=== PATIENT | female | born 1990 | race Caucasian/White ===

== ENCOUNTER 2017-04-08 20:21 | Emergency (ER) | payer BC, OTHER ==
[2017-04-08] MEDS ORDERED: LIDOCAINE 1% INJ-PF (10 MG/ML) 30 ML SDV INJ ONE (22:00)
[2017-04-08] MEDS ORDERED: HYDROCODONE/ACETAMINOPHEN 5-325 MG TABLET PO ONE (23:18)
--- NOTE | 2017-04-08 23:20 | ER Document Report ---
ED General - General Chief Complaint: Laceration Stated Complaint: FINGER LACETATION Time Seen by Provider: 04/08/17 21:59 Mode of Arrival: Ambulatory Information source: Patient, Relative Notes: Patient is a 18-year-old female comes emergency room complaining of having a laceration to her the palm side of her left ring finger. Patient states that she was in the kitchen cutting away from her body and cut down into the finger right at the DIP on the palm side. So it has a flap type presentation. This happened approximately 2 hours prior to arrival and patient states cannot get the bleeding to stop. 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 TRAVEL OUTSIDE OF THE [place] IN LAST 30 DAYS: No - HPI Onset: Other - 2 hours Onset/Duration: Sudden Quality of pain: Throbbing. denies: No pain Severity: Mild Pain Level: 2 Associated symptoms: None Exacerbated by: Other - Movement Relieved by: Other - Pressure and elevation Similar symptoms previously: No Recently seen / treated by doctor: No - Related Data Allergies/Adverse Reactions: NSAIDS (Non-Steroidal Anti-Inflamma [Nsaids] Allergy (Verified 06/03/15 13:23) Penicillins Allergy (Verified 06/03/15 13:23) Past Medical History - Social History Smoking Status: Unknown if Ever Smoked Family History: Reviewed & Not Pertinent Patient has suicidal ideation: No Patient has homicidal ideation: No - Past Medical History Cardiac Medical History: Reports: Hx Hypertension - PIH Renal/ Medical History: Denies: Hx Peritoneal Dialysis - Immunizations Hx Diphtheria, Pertussis, Tetanus Vaccination: Yes Review of Systems - Review of Systems Constitutional: No symptoms reported EENT: No symptoms reported Cardiovascular: No symptoms reported Respiratory: No symptoms reported Gastrointestinal: No symptoms reported Genitourinary: No symptoms reported Female Genitourinary: No symptoms reported Musculoskeletal: Joint pain Skin: Other - Laceration Hematologic/Lymphatic: No symptoms reported Neurological/Psychological: No symptoms reported -: Yes All other systems reviewed and negative Physical Exam - Vital signs Vitals: Temp Pulse Resp BP Pulse Ox 98.7 F 50 L 20 132/77 H 98 04/08/17 20:48 04/08/17 20:48 04/08/17 20:48 04/08/17 20:48 04/08/17 20:48 - General General appearance: Alert - Respiratory Respiratory status: No respiratory distress Chest status: Nontender Breath sounds: Normal. No: Rales, Rhonchi, Stridor, Wheezing Chest palpation: Normal - Cardiovascular Rhythm: Regular Heart sounds: Normal auscultation Murmur: No - Extremities General upper extremity: Tender, Normal ROM, Normal strength, Normal temperature. No: Normal inspection Hand: Tender, Laceration, Swelling, Other - Examination patient's left ring finger at the DIP palm side shows that patient has a 1 cm flap type laceration that starts at proximal to the DIP joint and goes to and towards the pad of the ring finger. It is approximately half a centimeter into the pad. It also appears to be relatively deep at about 0.7 mm into the fat portion. Patient has full range of motion with the tip there is no sign of flexor tendon origin or extensor tendon damage. This wound was looked at under a bloodless field and again saw no tendon involvement. Patient maintains a good cap refill she also maintain strength against resistance with that distal tip of the ring finger.. No: Normal, Nontender, Ecchymosis - Skin Skin Temperature: Warm Skin Moisture: Dry Skin Color: Other - See description in finger above Course - Vital Signs Vital signs: Temp Pulse Resp BP Pulse Ox 98.7 F 50 L 20 132/77 H 98 04/08/17 20:48 04/08/17 20:48 04/08/17 20:48 04/08/17 20:48 04/08/17 20:48 Procedures - Immobilization Left Finger 4th digit Pre-Proc Neuro Vasc Exam: Normal Immobilizer type: Finger splint (Static) Performed by: RN Post-Proc Neuro Vasc Exam: Normal Alignment checked and good: Yes - Laceration/Wound Repair Left Volar Finger 4th digit Time completed: 23:25 Wound length (cm): 1.5 Wound's Depth, Shape: Irregular, Flap Laceration pre-procedure: Sterile drapes applied, Shur-Clens applied Anesthetic type: 1% Lidocaine Volume Anesthetic (mLs): 1 Wound explored: Clean Irrigated w/ Saline (mLs): 200 Wound Debrided: Minimal Wound Repaired With: Sutures Suture Size/Type: 4:0, Prolene Number of Sutures: 3 Post-procedure NV exam normal: Yes Complications: No Discharge - Discharge Condition: Stable Disposition: HOME, SELF-CARE Instructions: Antibiotic Ointment Protection ([facility]), Laceration Care ([facility]), Oral Narcotic Medication ([facility]) Additional Instructions: Laceration Care Your laceration has been sutured to keep the skin edges aligned during healing. The time of suture removal depends on the nature and location of your cut. Please follow the care instructions the doctor has outlined for you and return for further care, according to the schedule you've been given. Keep the wound and dressing clean. Unless you were told otherwise, you may shower daily, blotting the wound dry with a clean, unused towel. At other times, If the dressing gets wet or blood soaked, remove it and blot the wound dry, then reapply a new dressing. Unless you were instructed otherwise, dressings should be changed at least daily. If any signs of infection occur (swelling, redness, increasing tenderness, red streaks, tender lumps in the armpit or groin above the laceration, or fever) , see the doctor immediately. Home and keep the area clean and dry for 48 hours. Change dressing twice a day and when wet or dirty. Take all the antibiotics. Return to ER in 8-10 days for suture removal or sooner if he do not believe it is healing correctly. Prescriptions: Clindamycin HCl 150 mg PO QID 7 Days #28 capsule Forms: Elevated Blood Pressure Referrals: IVA FLANNERY PA [Primary Care Provider] - Follow up as needed
[2017-04-09 00:11] VITALS: BP 128/69
== END 2017-04-08 23:50 | disposition home or self-care (01) ==
LOC: ER 20:21
PROC: 0HQGXZZ Repair Left Hand Skin, External Approach (ICD-10-PCS; principal; 2017-04-08)
DX: S61.215A Laceration without foreign body of left ring finger without damage to nail, initial encounter (principal); W45.8XXA Other foreign body or object entering through skin, initial encounter; Z88.0 Allergy status to penicillin
CPT/HCPCS: 99282

== ENCOUNTER 2020-03-12 06:37 | Inpatient (IN) | payer BC, OTHER, MEDICAID ==
[2020-03-12] MEDS ORDERED: MISOPROSTOL 0.2 MG TABLET ONE (08:32)
[2020-03-12] MEDS ORDERED: OXYTOCIN 10 UNIT/ML VIAL ONE (08:32)
[2020-03-12] MEDS ORDERED: OXYTOCIN/0.9 % SODIUM CHLORIDE 30 UNIT/500 ML RTUINJ ONE (08:32)
[2020-03-12] MEDS ORDERED: LIDOCAINE 1% INJ-PF (10 MG/ML) 30 ML SDV ONE (08:32)
[2020-03-12] MEDS ORDERED: OXYTOCIN/0.9 % SODIUM CHLORIDE 30 UNIT/500 ML RTUINJ IV PRN ×2 (08:40→17:18)
[2020-03-12] MEDS ORDERED: RINGERS SOLUTION,LACTATED 1,000 ML IV PRN (08:40)
--- NOTE | 2020-03-12 08:59 | Admission Physical ---
Datetime Report Generated by CPN: 03/12/2020 08:59 CURRENT ADMISSION Hx Assessment: The History has been Reviewed and is Current Chief Complaint: Scheduled Induction of Labor Indication for Induction: Gestational HTN Admit Impression : Term, Intrauterine ; No Active Labor Admit Plan: Admit to Unit; Initiate Labor Induction Protocol Admit Plan- Other: GBS +, allergic to PCN and Cephalosporins ALLERGIES Medication Allergies: NSAIDS (Non-Steroidal Anti-Inflamma (03/12/2020); Penicillins (03/12/2020) PHYSICAL EXAM General: Normal HEENT: Deferred Neurologic: Normal Thyroid: Deferred Heart: Normal Lungs: Normal Breast: Deferred Back: Deferred Abdomen: Normal Genitourinary Exam: Normal Extremities: Normal DTRs: Deferred Pelvic Type: Adequate Physical Exam Comments: cervix per RN Vital Signs: Reviewed FETUS A Monitoring: External US Accelerations: 15X15 Decelerations: None FHR Category: Category I Presentation: Vertex Admit Comment: GHTN Hx Gastric sleeve GBS urine early Pre E workup negative INFORMED CONSENT Assignment: Lorie Zamudio, MD Signature: with User ID: [email or web address] : with User ID: Ezra
[2020-03-12 09:51] LABS: ABSOLUTE LYMPHOCYTES (AUTO) 1.9 10^3/uL (0.5-4.7); ABSOLUTE MONOCYTES (AUTO) 0.5 10^3/uL (0.1-1.4); ABSOLUTE NEUT (AUTO) 4.5 10^3/uL (1.7-8.2); BASOPHILS % (AUTO) 0.5 % (0-2); EOSINOPHILS % (AUTO) 0.7 % (0-6); HEMATOCRIT 37.8 % (36.0-47.0); HEMOGLOBIN 13.2 g/dL (12.0-15.5); LYMPHOCYTES % (AUTO) 26.9 % (13-45); MEAN CORPUSCULAR VOLUME 86 fl (80-97); MONOCYTES % (AUTO) 7.5 % (3-13); PLATELET COUNT 249 10^3/uL (150-450); RED CELL DISTRIBUTION WIDTH 13.4 % (11.5-14.0); SEGMENTED NEUTROPHILS % (AUTO) 64.4 % (42-78); TOTAL CELLS COUNTED % (AUTO) 100 %
[2020-03-12] MEDS ORDERED: VANCOMYCIN HCL 1,000 MG in DEXTROSE 5%-WATER 250 ML IV SCH ×4 (10:00)
--- NOTE | 2020-03-12 11:02 | L&D Progress Notes ---
PROGRESS NOTES Datetime Report Generated by CPN: 03/12/2020 11:01 PROGRESS NOTE Impression: Normal Progression of Labor Procedures: Sterile Vag Exam Plan: Continue Present Management; Induction; Cervical Ripening Informed Consent Obtained: Vaginal Delivery; Risks, Benefits and Alternatives Discussed Vital Signs : Reviewed Vital Signs Comments: mild range BPs Comment: cvx 1-2. cooks catheter placed. will re-eval in 2-3 hours. VAGINAL EXAM Dilatation: 2 Effacement: 50 Station: -3 Contractions: q 2-3 LAST VAGINAL EXAM-NURSING Nursing Exam Dilitation: 1.5 Nursing Exam Effacement: thick Nursing Exam Station: high FETUS A FHR - Baseline: 150 Monitoring: External US Decelerations: None FHR Category: Category I : 39.1 Presentation: Vertex SIGNATURE SIGNATURE: [id number];[id number] Signature: with User ID: Dillon
[2020-03-12 12:44] LABS: APPEARANCE,URINE SLIGHTLY-CLOUDY; BILIRUBIN,URINE NEGATIVE (NEGATIVE); COLOR,URINE AMBER; GLUCOSE, URINE NEGATIVE (NEGATIVE); KETONES,URINE 20 mg/dL (NEGATIVE); LEUKOCYTE ESTERASE,URINE NEGATIVE (NEGATIVE); NITRITE,URINE NEGATIVE (NEGATIVE); PROTEIN,URINE 30 mg/dL (NEGATIVE); URINE SPECIFIC GRAVITY 1.018
[2020-03-12 13:07] LABS: URINE AMPHETAMINES SCREEN NEGATIVE; URINE BARBITURATES SCREEN NEGATIVE; URINE BENZODIAZEPINES SCREEN NEGATIVE; URINE COCAINE SCREEN NEGATIVE; URINE MARIJUANA (THC) SCREEN NEGATIVE; URINE METHADONE SCREEN NEGATIVE; URINE PHENCYCLIDINE SCREEN NEGATIVE
[2020-03-12] MEDS ORDERED: DIPHENHYDRAMINE HCL 25 MG CAPSULE PO PRN (17:18)
[2020-03-12] MEDS ORDERED: GLYCERIN/WITCH HAZEL LEAF 1 EACH MED..WIPE TP PRN (17:18)
[2020-03-12] MEDS ORDERED: ACETAMINOPHEN WITH CODEINE #3 TABLET PO PRN (17:18)
[2020-03-12] MEDS ORDERED: PROMETHAZINE HCL 25 MG SUPP.RECT PR PRN (17:18)
[2020-03-12] MEDS ORDERED: PROMETHAZINE HCL INJ 25 MG/1 ML VIAL IV PRN (17:18)
[2020-03-12] MEDS ORDERED: BENZOCAINE/MENTHOL AEROSOL SPRAY 56 ML TOP PRN (17:18)
[2020-03-12] MEDS ORDERED: PROMETHAZINE HCL 25 MG TABLET PO PRN (17:18)
[2020-03-12] MEDS ORDERED: DIPH/PERTUSS(ACELL)/TETANUS VAC/PF 0.5 ML SYR (>=10YO) IM PRN (17:18)
[2020-03-12] MEDS ORDERED: NA PHOS,M-B/NA PHOS,DI-BA (ADULT) 133 ML ENEMA PR PRN (17:18)
[2020-03-12] MEDS ORDERED: MEASLES,MUMPS&RUBELLA VACC/PF 0.5 ML VIAL SUBCUT PRN (17:18)
[2020-03-12] MEDS ORDERED: MAGNESIUM HYDROXIDE SUSP 30 ML UDCUP PO PRN (17:18)
[2020-03-12] MEDS ORDERED: ZOLPIDEM TARTRATE 5 MG TABLET PO PRN (17:18)
[2020-03-12] MEDS ORDERED: PSEUDOEPHEDRINE HCL 30 MG TABLET PO PRN (17:18)
[2020-03-12] MEDS ORDERED: DIBUCAINE 1% OINTMENT 28 GM TP PRN (17:18)
[2020-03-12] MEDS ORDERED: ACETAMINOPHEN 325 MG TABLET ONE (19:17)
--- NOTE | 2020-03-12 19:19 | Birth Certificate Data ---
Cert Data Datetime Report Generated by CPJennifer: 03/12/2020 19:19 CERTIFICATE DATA 47a. Care: Yes (03/12/2020 09:19:Yesica Chapin RN) 47b. Date of First Visit: 08/15/2019 00:00 (03/12/2020 09:19:Yesica Chapin RN) 47c. Date of Last Visit: 03/09/2020 00:00 (03/12/2020 09:19:Yesica Chapin RN) 47d. Number of Visits: 15 (03/12/2020 09:19:Yesica Chapin RN) 48a. Number of Prev Live Births: 2 (03/12/2020 09:19:Nicolasa Matamoros RN) 48b. Now Livin (03/12/2020 09:19:Nicolasa Matamoros RN) 48c. Live Births Now : 0 (03/12/2020 09:19:QS system process) 48e. Losses: 0 (03/12/2020 09:19:Nicolasa Matamoros RN) RISK FACTORS IN THIS 49a. Diabetes: No (03/12/2020 09:19:Yesica Chapin RN) 49b. Hypertension: Yes (03/12/2020 09:19:Yesica Chapin RN) Type of Hypertension: Gestational (PIH, Pre-eclampsia) (03/12/2020 09:19:Yesica Chapin RN) 49c. Previous Births: 0 (03/12/2020 09:19:Nicolasa Matamoros RN) 49d. Stillborns: No (03/12/2020 09:19:Nicolasa Matamoros RN) 49d. IUGR: No (03/12/2020 09:19:Nicolasa Matamoros RN) 49e. Infertility Treatment: No (03/12/2020 09:19:Yesica Chapin RN) 49f. Previous Cesareans: 0 (03/12/2020 09:19:Nicolasa Matamoros RN) Mother's Height 50b. Height Inches: 63 (03/12/2020 18:18:QS system process) Mother's Weight 51a. Pre- Weight (lbs): 189 (03/12/2020 09:19:Yesica Chapin RN) 51b. Weight at Delivery (lbs): 194 (03/12/2020 18:18:QS system process) 52. Dt Last Normal Menses Began: 06/12/2019 00:00 (03/12/2020 09:19:Nicolasa Matamoros RN) Infections Present/Treated 53a. Gonorrhea: No (03/12/2020 09:19:Yesica Chapin RN) Results this Hospital Visit : Negative (03/12/2020 09:19:Nicolasa Matamoros RN) 53b. Syphilis: No (03/12/2020 09:19:Yesica Chapin RN) Results this Hospital Visit: NONREACTIVE (03/12/2020 09:01:QS system process) 53c. Chlamydia: No (03/12/2020 09:19:Yesica Chapin RN) Results this Hospital Visit: Negative (03/12/2020 09:19:Yesica Chapin RN) 53d. Hepatitis B: No (03/12/2020 09:19:Yesica Chapin RN) Results this Hospital Visit: Negative (03/12/2020 09:19:Nicolasa Matamoros RN) 53e. Hepatitis C: Negative (03/12/2020 09:19:Nicolasa Matamoros RN) 53h. Mother Tested for HBsAG: Yes (03/12/2020 09:19:Nicolasa Matamoros RN) 53i. Date Tested: 08/15/2019 00:00 (03/12/2020 09:19:Nicolasa Matamoros RN) 53j. Test Result: Negative (03/12/2020 09:19:Nicolasa Matamoros RN) Obstetric Procedures 54a, b, c. Obstetric Procedures: Ultrasound; NST (03/12/2020 09:19:Yesica Chapin RN) Cigarette Smoking 55a. 3 Months Before Preg - Ci (03/12/2020 09:19:Yesica Chapin RN) 55a. Packs: 0 (03/12/2020 09:19:Yesica Chapin RN) 55b. 1st Trimester of Preg- Ci (03/12/2020 09:19:Yesica Chapin RN) 55b. Packs: 0 (03/12/2020 09:19:Yesica Chapin RN) 55c. 2nd Trimester of Preg- Ci (03/12/2020 09:19:Yesica Chapin RN) 55c. Packs: 0 (03/12/2020 09:19:Yesica Chapin RN) 55d. 3rd Trimester of Preg- Ci (03/12/2020 09:19:Yesica Chapin RN) 55d. Packs: 0 (03/12/2020 09:19:Yesica Chapin RN) Onset of Labor 56a. PROM >12 Hrs: 1.18 (03/12/2020 09:19:QS system process) 56b. Precipitous Labor <3 Hrs: 4 (03/12/2020 09:19:QS system process) 56c. Prolonged Labor > 20 Hrs: 4 (03/12/2020 09:19:QS system process) 57a. Induction of Labor: N/A (03/12/2020 09:19:Lorie Zamudio MD ([facility])) 57c. Non-Vertex Presentation A: Vertex (03/12/2020 09:19:Yesica Chapin RN) 57d. Steroids - Lung Mat: None (03/12/2020 09:19:Lorie Zamudio MD ([facility])) 57d. Steroids - Lung Mat: Not Applicable (03/12/2020 09:19:Lorie Zamudio MD ([facility])) 57e. Antibiotics During Labor: 03/12/2020 10:30 (03/12/2020 09:19:Yesica Chapin RN) 57g. Moderate/Heavy Meconium: Clear (03/12/2020 16:00:Yesica Chapin RN) 57h. Intolerance of Labor: N/A (03/12/2020 09:19:Yesica Chapin RN) : N/A (03/12/2020 09:19:Yesica Chapin RN) 57i. Epidural/Spinal Anesthesia: None (03/12/2020 09:19:Yesica Chapin RN) Method of Delivery 58a. Forceps - Unsuccessful A: N/A (03/12/2020 09:19:Yesica Chapin RN) 58b. Vacuum - Unsuccessful A: N/A (03/12/2020 09:19:Yesica Chapin RN) 58c. Presentation at 58c. Presentation at - A : Vertex (03/12/2020 09:19:Yesica Chapin RN) 58c. Presentation at - A : N/A (03/12/2020 09:19:Yesica Chapin RN) 58c. Presentation at - A : Cephalic (03/12/2020 08:07:Yesica Chapin RN) Final Route and Method of Del 58d. Baby A Route/Delivery: Vaginal (03/12/2020 17:11:Yesica Chapin RN) 58e. Trial of Labor Attempted: No (03/12/2020 09:19:Yesica Chapin RN) 58e. Trial of Labor Attempted A: N/A (03/12/2020 09:19:Yesica Chapin RN) 58e. Trial of Labor Attempted B: N/A (03/12/2020 09:19:Yesica Chapin RN) Maternal Morbidity 59b. 3rd or 4th Degree Lacs: None (03/12/2020 09:19:Lorie Zamudio MD ([facility])) 59b. 3rd or 4th Degree Lacs: N/A (03/12/2020 09:19:Yesica Chapin RN) Birthweight Baby A: 3070 (03/12/2020 09:19:Sofi Van RN) 60a. Pounds : 6 (03/12/2020 09:19:QS system process) 60b. Ounces: 12 (03/12/2020 09:19:QS system process) 61. GA at Delivery Baby A: 39.1 (03/12/2020 09:19:Yesica Chapin RN) : Full Term- 39- 40.6 Weeks (03/12/2020 09:19:QS system process) 62a. 5 Minute Baby A: 9 (03/12/2020 09:19:QS system process)
--- NOTE | 2020-03-12 19:19 | Delivery Summary ---
Del Sum A-C Datetime Report Generated by CPN: 03/12/2020 19:19 DELIVERY PERSONNEL DELIVERY PERSONNEL: [id number] Delivery Doctor:: Lorie Zamudio MD Labor and Delivery Nurse:: Yesica Chapin RNterminal gauger supervisor Nurse:: GURU Holden Nursery Nurse:: Sofi Van RN Hepatologist/WAFER POLISHER: Bernadette Mercado, PHLEBOTOMIST MATERNAL INFORMATION Delivery Anesthesia: None Medications After Delivery: Pitocin 30 Units in 500ml NS/D5W Estimated Blood Loss (ml): 400 Delivery QBL: 400 Maternal Complications: None Provider Comments: VFI delivered in OSCAR presentation. No nuchal cord. Shoulders and body delivered without difficulty. Cord doubly clamped and cut and to maternal abdomen after cord stopped pulsating. Short cord noted. Placenta delivered intact spontaneously with trailing membranes and no e/o retained products on crudee. No perineal lacerations. Good hemostasis. Mother and baby stable upon provider leaving the room. LABOR SUMMARY EDC: 03/18/2020 00:00 No. Babies in Womb: 1 Attempted: No Labor Anesthesia: None LABOR INFORMATION Reason for Induction: Gestational Hypertension Onset of Labor: 03/12/2020 12:48 Complete Dilatation: 03/12/2020 17:04 Oxytocin: N/A Group B Beta Strep: positive Antibiotics # of Doses: 1 Antibiotics Time of Last Dose: 03/12/2020 10:30 Name of Antibiotic Given: Vancomycin Steroids Given: None Reason Steroids Not Administered: Not Applicable MEMBRANES Membranes Rupture Method: Spontaneous Rupture of Membranes: 03/12/2020 16:00 Length of Rupture (hr): 1.18 Amniotic Fluid Color: Clear Amniotic Fluid Amount: Moderate Amniotic Fluid Odor: Normal STAGES OF LABOR Stage 1 hr: 4 Stage 1 min: 16 Stage 2 hr: 0 Stage 2 min: 7 Stage 3 hr: 0 Stage 3 min: 2 Total Time in Labor hr: 4 Total Time in Labor min: 25 VAGINAL DELIVERY Episiotomy: None Laceration #1: None Laceration Extension #1: N/A Laceration Repair: Not Applicable Sponge Count Correct: Yes Sharps Count Correct: Yes CSECTION DELIVERY Primary Indication: N/A Secondary Indication: N/A CSection Incidence: N/A Labor: N/A Elective: N/A CSection Incision: N/A BABY A INFORMATION Delivery Date/Time: 03/12/2020 17:11 Method of Delivery: Vaginal : N/A Forceps: N/A Vacuum Extraction: N/A Shoulder Dystocia : No PRESENTATION/POSITION BABY A Presentation: Cephalic Cephalic Presentation: Vertex Vertex Position: Right Occipital Anterior Breech Presentation: N/A PLACENTA INFORMATION BABY A Placenta Delivery Time : 03/12/2020 17:13 Placenta Method of Delivery: Spontaneous Placenta Status: Delivered SCORES BABY A Heart Rate 1 min: >100 bpm Resp Effort 1 min: Good Cry Reflex Irritability 1 min: Cough or Sneeze or Pulls Away Muscle Tone 1 min: Active Motion Color 1 min: Body Reedy, Extremities Blue SCORE 1 MIN: 9 Heart Rate 5 min: >100 bpm Resp Effort 5 min: Good Cry Reflex Irritability 5 min: Cough or Sneeze or Pulls Away Muscle Tone 5 min: Active Motion Color 5 min: Body Reedy, Extremities Blue SCORE 5 MIN: 9 INFANT INFORMATION BABY A Gestational Age at Delivery: 39.1 Gestational Status: Full Term- 39- 40.6 Weeks Outcome : Liveborn Condition : Stable Infant Sex: Female IDENTIFICATION BABY A Verification Date/Time: 03/12/2020 17:53 ID Band Number: [id number] Mother's Name Verified: Yes RN Verifying Infant: TMartin,RN Additional Verifying Personnel: [facility],ST WEIGHT/LENGTH BABY A Birthweight (gm): 3070 Weight (lb): 6 Weight (oz): 12 Infant Length (in): 20.00 Infant Length (cm): 50.80 CORD INFORMATION BABY A No. Cord Vessels: 3 Nuchal Cord : N/A Cord Blood Taken: Yes-For Eval (Mom's Blood Type - or O+) Suction: None ASSESSMENT BABY A Infant Complications: None Physical Findings at Delivery: Within Normal Limits Respirations: Appears Normal Skin to Skin: Yes Skin to Skin Time (min): 60 Transferred To: Remains with Mother BABY B INFORMATION : N/A SIGNATURES Signature: with User ID: [email or web address] : I was personally available for consultation and serving as supervising physician for the MLP.
[2020-03-12] MEDS: ACETAMINOPHEN 325 MG TABLET PO PRN (19:21)
[2020-03-12] MEDS: FAMOTIDINE 20 MG TABLET PO SCH (22:39)
[2020-03-13] MEDS: NIFEDIPINE 30 MG TAB.ER.24 PO SCH ×2 (00:18→10:09)
[2020-03-13] MEDS: ACETAMINOPHEN 325 MG TABLET PO PRN ×3 (03:28→15:02)
[2020-03-13 06:23] LABS: HEMATOCRIT 34.6 % (36.0-47.0); HEMOGLOBIN 12.3 g/dL (12.0-15.5); MEAN CORPUSCULAR HEMOGLOBIN 30.3 pg (27.0-33.4); MEAN CORPUSCULAR HGB CONC 35.6 g/dL (32.0-36.0); MEAN CORPUSCULAR VOLUME 85 fl (80-97); PLATELET COUNT 234 10^3/uL (150-450); RED BLOOD COUNT 4.06 10^6/uL (3.72-5.28); RED CELL DISTRIBUTION WIDTH 13.7 % (11.5-14.0); WHITE BLOOD COUNT 10.1 10^3/uL (4.0-10.5)
[2020-03-13] MEDS: SENNOSIDES/DOCUSATE 8.6-50 MG 1 EACH TABLET PO SCH (10:10)
[2020-03-13] MEDS: DOCUSATE SODIUM 100 MG CAPSULE PO SCH ×3 (10:12→17:48)
[2020-03-13] MEDS: FERROUS SULFATE 325 MG TABLET PO SCH ×2 (10:13→17:48)
[2020-03-13] MEDS: FAMOTIDINE 20 MG TABLET PO SCH ×2 (10:13→22:14)
[2020-03-13] MEDS: PRENATAL VITAMIN W DHA CAPSULE PO SCH (10:14)
--- NOTE | 2020-03-13 11:19 | PDOC PROGRESS REPORT ---
Subjective-OB Progress Note for:: 03/13/20 Subjective: Pt doing well, reports light bleeding, reg diet and no difficulty voiding. No concerns. Physical Exam (OB) Vital Signs: Temp Pulse Resp BP Pulse Ox 97.4 F 64 16 120/85 100 03/13/20 07:29 03/13/20 07:29 03/13/20 07:29 03/13/20 07:29 03/13/20 07:29 Intake & Output 03/12/20 03/13/20 03/14/20 06:59 06:59 06:59 Intake Total 1250 Output Total 1500 Balance -250 Weight 87.6 kg - Maternal Morbidity 59. Maternal Morbidity (serious complications experinced by the mother associated with labor and delivery: None of the above - Lochia Lochia Amount: Small 10-25 ml Lochia Color: Rubra/Red - Abdomen Description: Soft Fundal Description: Firm, Midline Fundal Height: u/u - u/2 Objective-Diagnostic Laboratory: 03/13/20 06:02 03/12/20 03/13/20 06:50 06:02 WBC 10.1 RBC 4.06 Hgb 12.3 Hct 34.6 L MCV 85 MCH 30.3 MCHC 35.6 RDW 13.7 Plt Count 234 Urine Color KISHAN Urine Appearance SLIGHTLY-CLOUDY Urine pH 6.0 Ur Specific [place] 1.018 Urine Protein 30 H Urine Glucose (UA) NEGATIVE Urine Ketones 20 H Urine Blood NEGATIVE Urine Nitrite NEGATIVE Ur Leukocyte Esterase NEGATIVE Assessment and Plan(PN) - Assessment and Plan (1) Carrier of group B Streptococcus Is this a current diagnosis for this admission?: Yes (2) Pre-eclampsia Qualifiers: Trimester: third trimester Qualified Code(s): O14.93 - Unspecified pre- eclampsia, third trimester Is this a current diagnosis for this admission?: Yes (3) Vaginal delivery Is this a current diagnosis for this admission?: Yes - Time Spent with Patient Time with patient: Less than 15 minutes Medications reviewed and adjusted accordingly: Yes - Disposition Anticipated Discharge Disposition: Home, Self Care Anticipated Discharge Timeframe: within 24 hours
[2020-03-13] MEDS: ACETAMINOPHEN WITH CODEINE #3 TABLET PO PRN (17:50)
[2020-03-14] MEDS: ACETAMINOPHEN 325 MG TABLET PO PRN ×2 (04:02→10:17)
--- NOTE | 2020-03-14 09:15 | PDOC DISCHARGE SUMMARY ---
Impression - Admit/DC Date/PCP Admission Date/Primary Care Provider: 03/12/20 06:37 RAMONE ROSA MD Discharge Date: 03/14/20 - Discharge Diagnosis (1) Carrier of group B Streptococcus Is this a current diagnosis for this admission?: Yes (2) Pre-eclampsia Is this a current diagnosis for this admission?: Yes (3) Vaginal delivery Is this a current diagnosis for this admission?: Yes - Additional Information Resuscitation Status: Full Code Discharge Diet: Regular Discharge Activity: Balance Activity w/Rest, Pelvic Rest Referrals: RAMONE ROSA MD [Primary Care Provider] - Prescriptions: Acetaminophen with Codeine [Tylenol #3 Tablet] 1 each PO Q4HP PRN #20 tablet PRN Reason: For Pain Scale 3-5 Home Medications: Prenat 115/Iron Fum/Folic/Dss [ 19 Tablet] 1 tab PO DAILY 03/12/20 Acetaminophen with Codeine [Tylenol #3 Tablet] 1 each PO Q4HP PRN #20 tablet 03/14/20 HPI Gestational Age: 39.1 Reason(s) for Admission: Induction of Labor Procedures: NST Intrapartum Procedure(s): Spontaneous Vaginal Delivery Hospital Course 59. Maternal Morbidity (serious complications experinced by the mother associated with labor and delivery: None of the above Results Laboratory Results: WBC 10.1 10^3/uL (4.0-10.5) 03/13/20 06:02 RBC 4.06 10^6/uL (3.72-5.28) 03/13/20 06:02 Hgb 12.3 g/dL (12.0-15.5) 03/13/20 06:02 Hct 34.6 % (36.0-47.0) L 03/13/20 06:02 MCV 85 fl (80-97) 03/13/20 06:02 MCH 30.3 pg (27.0-33.4) 03/13/20 06:02 MCHC 35.6 g/dL (32.0-36.0) 03/13/20 06:02 RDW 13.7 % (11.5-14.0) 03/13/20 06:02 Plt Count 234 10^3/uL (150-450) 03/13/20 06:02 Lymph % (Auto) 26.9 % (13-45) 03/12/20 09:01 [place] % (Auto) 7.5 % (3-13) 03/12/20 09:01 Eos % (Auto) 0.7 % (0-6) 03/12/20 09:01 Baso % (Auto) 0.5 % (0-2) 03/12/20 09:01 Absolute Neuts (auto) 4.5 10^3/uL (1.7-8.2) 03/12/20 09:01 Absolute Lymphs (auto) 1.9 10^3/uL (0.5-4.7) 03/12/20 09:01 Absolute Monos (auto) 0.5 10^3/uL (0.1-1.4) 03/12/20 09:01 Absolute Eos (auto) 0.0 10^3/uL (0.0-0.6) 03/12/20 09:01 Absolute Basos (auto) 0.0 10^3/uL (0.0-0.2) 03/12/20 09:01 Seg Neutrophils % 64.4 % (42-78) 03/12/20 09:01 Urine Color KISHAN 03/12/20 06:50 Urine Appearance SLIGHTLY-CLOUDY 03/12/20 06:50 Urine pH 6.0 (5.0-9.0) 03/12/20 06:50 Ur Specific [place] 1.018 03/12/20 06:50 Urine Protein 30 mg/dL (NEGATIVE) H 03/12/20 06:50 Urine Glucose (UA) NEGATIVE mg/dL (NEGATIVE) 03/12/20 06:50 Urine Ketones 20 mg/dL (NEGATIVE) H 03/12/20 06:50 Urine Blood NEGATIVE (NEGATIVE) 03/12/20 06:50 Urine Nitrite NEGATIVE (NEGATIVE) 03/12/20 06:50 Urine Bilirubin NEGATIVE (NEGATIVE) 03/12/20 06:50 Urine Urobilinogen 2.0 mg/dL (<2.0) H 03/12/20 06:50 Ur Leukocyte Esterase NEGATIVE (NEGATIVE) 03/12/20 06:50 Urine Ascorbic Acid 20 (NEGATIVE) H 03/12/20 06:50 Urine Opiates Screen NEGATIVE 03/12/20 06:50 Urine Methadone Screen NEGATIVE 03/12/20 06:50 Ur Barbiturates Screen NEGATIVE 03/12/20 06:50 Ur Phencyclidine Scrn NEGATIVE 03/12/20 06:50 Ur Amphetamines Screen NEGATIVE 03/12/20 06:50 U Benzodiazepines Scrn NEGATIVE 03/12/20 06:50 Urine Cocaine Screen NEGATIVE 03/12/20 06:50 U Marijuana (THC) Screen NEGATIVE 03/12/20 06:50 RPR NONREACTIVE (NONREACTIVE) 03/12/20 09:01 Blood Type A POSITIVE 03/12/20 09:01 Antibody Screen NEGATIVE 03/12/20 09:01 Plan Plan of Treatment: f/u at [facility] 1 wk for BP check Time Spent: Less than 30 Minutes
[2020-03-14] MEDS: PRENATAL VITAMIN W DHA CAPSULE PO SCH (09:46)
[2020-03-14] MEDS: SENNOSIDES/DOCUSATE 8.6-50 MG 1 EACH TABLET PO SCH (09:46)
[2020-03-14] MEDS: DOCUSATE SODIUM 100 MG CAPSULE PO SCH (09:46)
[2020-03-14] MEDS: FAMOTIDINE 20 MG TABLET PO SCH (09:46)
[2020-03-14] MEDS: FERROUS SULFATE 325 MG TABLET PO SCH (09:46)
[2020-03-14] MEDS: NIFEDIPINE 30 MG TAB.ER.24 PO SCH (09:47)
[2020-03-14 11:42] VITALS: BP 120/83
[2020-03-14] MEDS: ACETAMINOPHEN WITH CODEINE #3 TABLET PO PRN (11:59)
== END 2020-03-14 16:50 | disposition home or self-care (01) | DRG 807 ==
LOC: LR 06:37 → 2S 20:52
PROVIDERS: ADMIT Student in an Organized Health Care Education/Training Program; ATTEND Student in an Organized Health Care Education/Training Program
PROC: 10E0XZZ Delivery of Products of Conception, External Approach (ICD-10-PCS; principal; 2020-03-12)
PROC: 0U7C7ZZ Dilation of Cervix, Via Natural or Artificial Opening (ICD-10-PCS; 2020-03-12)
PROC: 3E0234Z Introduction of Serum, Toxoid and Vaccine into Muscle, Percutaneous Approach (ICD-10-PCS; 2020-03-14)
PROC: 3E0234Z Introduction of Serum, Toxoid and Vaccine into Muscle, Percutaneous Approach (ICD-10-PCS; 2020-03-14)
DX: O14.94 Unspecified pre-eclampsia, complicating childbirth (principal); Z37.0 Single live birth; O99.824 Streptococcus B carrier state complicating childbirth; Z88.0 Allergy status to penicillin; Z88.1 Allergy status to other antibiotic agents; Z88.6 Allergy status to analgesic agent; O69.3XX0 Labor and delivery complicated by short cord, not applicable or unspecified; Z3A.39 39 weeks gestation of pregnancy; Z23 Encounter for immunization
CPT/HCPCS: 36415; 59025; 80307; 81005; 85025; 85027; 86592; 86850; 86900; 86901; 90707; 90715; J2590; J3370; J3490; J7060